=== PATIENT | female | born 1970 | race Caucasian/White ===

== ENCOUNTER 2020-04-06 07:38 | Day surgery (SDC) | payer BC ==
[~2020-04-06] VITALS: Ht 165.1 cm; Wt 75.2 kg
[2020-04-06] MEDS ORDERED: ALLEGRA 180MG180 MG PO (08:11)
[2020-04-06] MEDS ORDERED: TOPAMAX 25MG25 M1 PO (08:11)
[2020-04-06] MEDS ORDERED: CELEXA40 MG PO (08:12)
[2020-04-06] MEDS ORDERED: ZYRTEC 10MG10 MG PO (08:12)
[2020-04-06] MEDS ORDERED: XANAX 0.5MG0.5 MG PO (08:12)
[2020-04-06] MEDS ORDERED: SINGULAIR 110 MG/TAB PO (08:13)
[2020-04-06] MEDS ORDERED: PEPCID 20MG TAB20 MG PO (08:17)
[2020-04-06 08:26] VITALS: BP 128/94; PULSE 80; TEMP 97.1
[2020-04-06 09:35] VITALS: BP 126/101; PULSE 77
--- NOTE | 2020-04-06 09:35 | NUR ---
PATIENT TO RECOVERY BAY 6 POST PROCEDURE VIA CART WITH RN. AMBULATORY TO CHAIR WITH ASSIST OF ONE. MADE COMFORTABLE IN CHAIR GIVEN WARM BLANKETS. NO COMPLAINTS OF NAUSEA OR PAIN. PATIENT GIVEN SODE AND MUFFIN. TOLERATES WITHOUT DIFFICULTY.
[2020-04-06 09:45] VITALS: BP 024/91; PULSE 76
[2020-04-06 10:00] VITALS: BP 123/89; PULSE 68
--- NOTE | 2020-04-06 10:00 | NUR ---
DR AT BEDSIDE TO SPEAK WITH PATIENT. NO NAUSEA OR PAIN. READY TO GO HOME.
--- NOTE | 2020-04-06 10:15 | NUR ---
DISMISSAL INSTRUCTIONS VERBALLY REVIEWED WITH PATIENT AT BEDSIDE. WRITTEN HARD COPIES GIVEN TO PATIENT. VERBAL UNDERSTANDING GIVEN. DENIES QUESTIONS.
--- NOTE | 2020-04-06 10:30 | NUR ---
PATIENT ESCORTED VIA WHEELCHAIR TO FRONT ENTRANCE TO WAITING [employer]ER WORKER WITH RN.
== END 2020-04-06 10:30 | disposition home or self-care (01) ==
LOC: SDCO 07:38
DX: D12.2 Benign neoplasm of ascending colon (principal); K92.1 Melena; K57.30 Diverticulosis of large intestine without perforation or abscess without bleeding; K64.1 Second degree hemorrhoids; K59.00 Constipation, unspecified; F41.9 Anxiety disorder, unspecified; K21.9 Gastro-esophageal reflux disease without esophagitis; F17.210 Nicotine dependence, cigarettes, uncomplicated; Z90.49 Acquired absence of other specified parts of digestive tract; Z90.710 Acquired absence of both cervix and uterus; Z20.822 Contact with and (suspected) exposure to COVID-19
CPT/HCPCS: J2704; J7120